=== PATIENT | male | born 1940 | race Caucasian/White ===

== ENCOUNTER 2017-03-19 09:09 | Outpatient (CLI) | payer MEDICARE, OTHER | END 2017-03-19 09:10 | disposition home or self-care (01) | DX: E53.8 Deficiency of other specified B group vitamins (principal); I10 Essential (primary) hypertension; C61 Malignant neoplasm of prostate; Z79.899 Other long term (current) drug therapy; I48.0 Paroxysmal atrial fibrillation; E78.5 Hyperlipidemia, unspecified ==

== ENCOUNTER 2017-09-15 14:14 | Outpatient (CLI) | payer MEDICARE, OTHER ==
[2017-09-15 19:18] LABS: BASOPHILS # (AUTO) 0.1 10^3/uL (0.0-0.1); EOSINOPHILS # (AUTO) 0.1 10^3/uL (0.0-0.7); EOSINOPHILS % (AUTO) 1.7 %; HCT - HEMATOCRIT 40.5 % (42.0-52.0); HGB - HEMOGLOBIN 13.1 g/dL (14.0-18.0); LYMPHOCYTES # (AUTO) 1.7 10^3/uL (1.5-3.5); LYMPHOCYTES % (AUTO) 29.2 %; MEAN CORPUSCULAR HEMOGLOBIN 31.5 pg (27.0-31.0); MEAN CORPUSCULAR HGB CONC 32.3 g/dL (32.0-36.0); MEAN CORPUSCULAR VOLUME 97.6 fL (80.0-94.0); MEAN PLATELET VOLUME 8.2 fL (7.4-11.4); MONOCYTES # (AUTO) 0.6 10^3/uL (0.0-1.0); MONOCYTES % (AUTO) 11.1 %; NEUTROPHILS # (AUTO) 3.3 10^3/uL (1.5-6.6); NUCLEATED RED BLOOD CELLS AUTO 0.1 /100WBC; RED BLOOD COUNT 4.15 10^6/uL (4.70-6.10); RED CELL DISTRIBUTION WIDTH 14.4 % (12.0-15.0); UNCORRECTED WHITE BLOOD COUNT 5.8 x10^3/uL; WHITE BLOOD COUNT 5.8 x10^3/uL (4.8-10.8)
[2017-09-15 19:32] LABS: ALBUMIN/GLOBULIN RATIO 1.1 (1.0-2.2); BILIRUBIN,TOTAL 0.8 mg/dL (0.2-1.0); CALCIUM 8.9 mg/dL (8.5-10.3); CREATININE 1.1 mg/dL (0.6-1.2); POTASSIUM 4.4 mmol/L (3.5-5.0); TOTAL PROTEIN 7.2 g/dL (6.7-8.2)
== END 2017-09-15 14:15 | disposition home or self-care (01) ==
LOC: LAB.WCP 14:14
PROVIDERS: ATTEND Family Medicine
DX: K91.850 Pouchitis (principal)
CPT/HCPCS: 36415; 80053; 85025

== ENCOUNTER 2017-09-23 07:48 | Outpatient (CLI) | payer MEDICARE, OTHER ==
[~2017-09-23 07:48] MED LIST: IOPAMIDOL-300 100 ML VIAL ONE; IOPAMIDOL-300 50 ML VIAL ONE
[2017-09-23] MEDS ORDERED: IOPAMIDOL-300 100 ML VIAL IVP ONE (09:15)
[2017-09-23] MEDS ORDERED: IOPAMIDOL-300 50 ML VIAL PO ONE (09:15)
--- NOTE | 2017-09-24 12:20 | CT Report ---
ABDOMEN AND PELVIS CT: 09/23/2017 COMPARISON STUDY: Abdomen and pelvis CT 05/27/2016. INDICATION: History of colon resection and inflammatory bowel disease. TECHNIQUE: Five-millimeter axial imaging of the abdomen and pelvis with coronal and sagittal reforma ts. A total of 100 mL Isovue-300, with oral contrast as well. In accordance with CT protocol optimization, one or more of the following dose reduction techniques w ere utilized for this exam: automated exposure control, adjustment of mA and/or KV based on patient size, or use of iterative reconstructive technique. FINDINGS: The liver, spleen, pancreas, and adrenal glands appear unremarkable. Right renal cortical cyst appears unchanged. The kidneys appear otherwise unremarkable. There is thickening of the distal small bowel at the coloenteric anastomosis. This is significantly decreased compared to the prior exam. No abdominal or pelvic adenopathy is seen. Prostate seeds are noted. There is no free fluid or free air. Left hip prosthesis is noted. Bones are otherwise remarkable only for degenerative changes. Soft ti ssues are grossly unremarkable apart from postoperative changes of the anterior abdomen. IMPRESSION: SIGNIFICANT DECREASE IN SMALL BOWEL THICKENING AT THE COLOENTERIC ANASTOMOSIS COMPARED T O THE PRIOR EXAM. JOB #: [id number] EXT JOB #:[id number]
== END 2017-09-23 07:49 | disposition home or self-care (01) ==
LOC: DI 07:48
PROVIDERS: ATTEND Family Medicine
DX: K91.850 Pouchitis (principal)
CPT/HCPCS: 74177; Q9967

== ENCOUNTER 2017-10-08 13:07 | Outpatient (CLI) | payer MEDICARE, OTHER | END 2017-10-08 13:08 | disposition home or self-care (01) | LOC: LAB.R 13:07 | PROVIDERS: ATTEND Internal Medicine Gastroenterology | DX: Z87.19 Personal history of other diseases of the digestive system (principal); K52.9 Noninfective gastroenteritis and colitis, unspecified | CPT/HCPCS: 87177; 87209 ==

== ENCOUNTER 2017-10-14 11:47 | Day surgery (SDC) | payer MEDICARE, OTHER ==
[2017-10-14] MEDS ORDERED: LACTATED RINGERS 1,000 ML IV ONE (12:20)
[2017-10-14] MEDS ORDERED: fentaNYL 100 MCG/2 ML VIAL IVP ONE (13:00)
[2017-10-14] MEDS ORDERED: MIDAZOLAM 2 MG/2 ML VIAL IVP ONE (13:00)
[2017-10-14 13:37] VITALS: BP 11/79
== END 2017-10-14 11:48 | disposition home or self-care (01) ==
LOC: SDS 11:47
PROVIDERS: ATTEND Internal Medicine
PROC: 0DBB8ZX Excision of Ileum, Via Natural or Artificial Opening Endoscopic, Diagnostic (ICD-10-PCS; principal; 2017-10-14 13:00)
DX: K51.40 Inflammatory polyps of colon without complications (principal); K63.3 Ulcer of intestine; Z90.49 Acquired absence of other specified parts of digestive tract; I48.2 Chronic atrial fibrillation; E78.5 Hyperlipidemia, unspecified; I10 Essential (primary) hypertension; Z79.01 Long term (current) use of anticoagulants; Z87.891 Personal history of nicotine dependence; Z85.46 Personal history of malignant neoplasm of prostate
CPT/HCPCS: 44377; 88305; J7120

== ENCOUNTER 2017-11-09 10:21 | Emergency (ER) | payer MEDICARE, OTHER ==
--- NOTE | 2017-11-09 11:50 | CT Preliminary Report ---
Exam: CT HEAD W/O IMPRESSION: 1. No evidence for intracranial hemorrhage or depressed calvarial fracture. [facility] SITE ID: [id number]
--- NOTE | 2017-11-09 11:53 | CT Report ---
EXAM: CT HEAD EXAM DATE: 11/09/2017 11:42 AM. CLINICAL HISTORY: Injury. Fell on ice this morning. Hit occiput. On blood thinners. COMPARISON: None. TECHNIQUE: Multiaxial CT images were obtained from the foramen magnum to the vertex. Reformats: Coron al. IV contrast: None. In accordance with CT protocol optimization, one or more of the following dose reduction techniques w ere utilized for this exam: automated exposure control, adjustment of mA and/or KV based on patient s ize, or use of iterative reconstructive technique. FINDINGS: Parenchyma: No intraparenchymal hemorrhage. No evidence of mass, midline shift, or CT findings of inf arction. Smart-white differentiation is distinct. Old right basal ganglia lacunar infarct versus promi nent Virchow-William space. Incidental right basal ganglia physiologic calcifications. Extraaxial Spaces: Normal for age. No subdural or epidural collections identified. Ventricles: Normal in size and position. Sinuses and Orbits: Imaged paranasal sinuses, orbits, and mastoids show no significant abnormality. Bones: No evidence of fracture or calvarial defect. Other: None. IMPRESSION: 1. No evidence for intracranial hemorrhage or depressed calvarial fracture. [facility] Referring Provider Line: [phone] SITE ID: [id number]
--- NOTE | 2017-11-09 12:16 | XRAY Preliminary Report ---
Exam: XR SHOULDER 3 VIEW RT IMPRESSION: 1. Scapular Y-view raises concern for scapular fracture along inferior angle. Consider CT to further characterize. [facility] SITE ID: [id number]
--- NOTE | 2017-11-09 12:19 | XRAY Report ---
EXAM: RIGHT SHOULDER RADIOGRAPHY EXAM DATE: 11/09/2017 11:52 AM. CLINICAL HISTORY: Fall with pain . COMPARISON: None. TECHNIQUE: 3 views. FINDINGS: Bones: Scapular Y-view raises concern for scapular fracture along inferior angle. Joints: The glenohumeral and acromioclavicular joints are normally aligned. Glenohumeral joint space narrowing from degenerative changes. Soft tissues: The visualized hemithorax is unremarkable. No soft tissue swelling. IMPRESSION: 1. Scapular Y-view raises concern for scapular fracture along inferior angle. Consider CT to further characterize. [facility] Referring Provider Line: [phone] SITE ID: [id number]
[2017-11-09 13:11] VITALS: BP 155/96
--- NOTE | 2017-11-09 14:01 | CT Preliminary Report ---
Exam: CT CHEST W/O IMPRESSION: 1. Fracture with small displacement in the medial mid-inferior right scapular body. 2. Negative for pneumothorax, pleural effusion or pulmonary contusion. 3. Coronary artery disease and new borderline cardiomegaly without overt pulmonary edema. [facility] SITE ID: [id number]
--- NOTE | 2017-11-09 14:04 | CT Report ---
EXAM: CT CHEST EXAM DATE: 11/09/2017 01:45 PM. CLINICAL HISTORY: Pain post fall, clinical concern for scapular fracture. COMPARISONS: 03/22/2013. TECHNIQUE: Routine helical CT imaging was performed through the chest. IV contrast: None. Reconstruct ions: Coronal and sagittal. In accordance with CT protocol optimization, one or more of the following dose reduction techniques w ere utilized for this exam: automated exposure control, adjustment of mA and/or KV based on patient s ize, or use of iterative reconstructive technique. FINDINGS: Lungs/Pleura: Interval resolution of the right large pleural effusion and the right basilar pulmonary opacity is noted. No new nodules, bronchial thickening, consolidation, or edema. Pulmonary vasculatu re is normal. No pericardial or left pleural effusion. No pneumothorax. Mediastinum: No new adenopathy or masses. There is new borderline cardiomegaly. Coronary artery calci fications are again seen. No thoracic aortic aneurysm. Bones: There is fracture with small displacement in the medial mid-lower right scapular body. No rib fracture, clavicular fracture, sternal or thoracic spine fracture seen. Visualized Abdomen: Unremarkable. IMPRESSION: 1. Fracture with small displacement in the medial mid-inferior right scapular body. 2. Negative for pneumothorax, pleural effusion or pulmonary contusion. 3. Coronary artery disease and new borderline cardiomegaly without overt pulmonary edema. [facility] Referring Provider Line: [phone] SITE ID: [id number]
[2017-11-09] MEDS ORDERED: HYDROcod/ACETAM 5/325 MG TABLET PO STA (15:09)
--- NOTE | 2017-11-09 15:09 | ED Physician Documentation ---
History of Present Illness - Stated complaint Stated Complaint: RT SHOULDER PX - Chief complaint Chief Complaint: Trauma Ext - History obtained from History obtained from: Patient (pt here for evaluation of a fall. he states that he fell down some stairs after tripping. states that he did hit his head , no LOC does have right shoulder pain. No problems breathing, no other complatins from the fall.) - History of Present Illness Timing: Prior to arrival Review of Systems Constitutional: denies: Fever, Chills Cardiac: denies: Chest pain / pressure, Palpitations, Pedal edema Respiratory: denies: Dyspnea, Cough GI: denies: Abdominal Pain, Nausea, Vomiting : denies: Dysuria, Frequency Skin: reports: Reviewed and negative. denies: Rash, Lesions Musculoskeletal: reports: Extremity pain (right [place]), Joint pain (right shoulder). denies: Neck pain, Back pain, Extremity swelling, Joint swelling Neurologic: denies: Generalized weakness, Numbness, Syncope, Seizure, Confused, Altered mental status, Headache, Head injury, LOC PD PAST MEDICAL HISTORY - Past Medical History Past Medical History: Yes Cardiovascular: Hypertension, Atrial fibrillation Respiratory: None Endocrine/Autoimmune: None GI: None : None, Other HEENT: None Psych: None Musculoskeletal: None Derm: None - Past Surgical History Past Surgical History: Yes General: Other HEENT: Tonsil/Adenoidectomy - Present Medications Home Medications: Ambulatory Orders Medication Instructions Recorded Confirmed Metoprolol Succinate [Toprol Xl] 100 mg PO BID 03/29/14 11/09/17 Rivaroxaban [Xarelto] 20 mg PO DAILY 03/29/14 11/09/17 Simvastatin [Zocor] 20 mg PO QPM 03/29/14 11/09/17 Apixaban [Eliquis] 11/09/17 HYDROcod/ACETAM 5/325 [[place] 5/325] 1 - 2 ea PO Q6H PRN #15 tablet 11/09/17 - Allergies Allergies/Adverse Reactions: Allergies Allergy/AdvReac Type Severity Reaction Status Date / Time Sulfa (Sulfonamide Allergy Mild Rash Verified 03/29/14 12:37 Antibiotics) - Social History Does the pt smoke?: Yes Smoking Status: Former smoker Does the pt have substance abuse?: No - POLST Patient has POLST: Yes PD ED PE NORMAL - Vitals Vital signs reviewed: Yes - General General: Alert and oriented X 3, No acute distress, Well developed/nourished - HEENT HEENT: Atraumatic, PERRL, Ears normal, Moist mucous membranes - Cardiac Cardiac: RRR, No murmur, Strong equal pulses (radial ) - Respiratory Respiratory: No respiratory distress, Clear bilaterally - Abdomen Abdomen: Normal bowel sounds - Back Back: No CVA TTP, No spinal TTP - Derm Derm: Normal color, No rash - Extremities Extremities: No deformity, No edema. No: No tenderness to palpate (TTP over the right shoulder, pt able to touch is left shoulder with right hand but with pain. No right elbow or right wrist pain. No hip pain no LE swelling. ) - Neuro Neuro: Alert and oriented X 3, No motor deficit, No sensory deficit (sensation intact over the right lateral deltoid and right upper extremity. ) Eye Opening: Spontaneous Motor: Obeys Commands Verbal: Oriented GCS Score: 15 - Psych Psych: Normal mood, Normal affect Results - Vitals Vitals: Vital Signs - 24 hr 11/09/17 11/09/17 11/09/17 10:29 11:19 13:10 Temperature 36.3 C L 36.9 C Heart Rate 75 81 76 Respiratory 18 16 18 Rate Blood Pressure 153/85 H 135/84 H 155/96 H O2 Saturation 100 99 98 Oxygen O2 Source [Without Activity] Room air O2 Source Room air - Rads (name of study) Head CT Radiology: Final report received right shoulder X-ray Radiology: Final report received Ct chest Radiology: Final report received PD MEDICAL DECISION MAKING - ED course Complexity details: d/w patient ED course: pt with right scapula fracture. discussed with ortho direct care professional who recommended sling and follow up in office in a week. Discussed this with the pt. he has no other PE findings from the fall. he is anticoagulated but has no findings on the head CT and has no neuro findings. We discussed return precautions. he expressed understanding. Departure - Departure Disposition: 01 Home, Self Care Clinical Impression: Fall, Scapular fracture Condition: Good Instructions: ED Immobilizer Shoulder, Falls Risks Prevent Follow-Up: Pablo Jackson MD [Primary Care Provider] - Prescriptions: HYDROcod/ACETAM 5/325 [[place] 5/325] 1 - 2 ea PO Q6H PRN #15 tablet PRN Reason: Pain Comments: use the sling like we discussed. call your primary care provider for a follow up in the next week. Return to the ER for any new or worsening symptoms.
[2017-11-09] MEDS ORDERED: HYDROcod/ACETAM 5/325 MG TABLET ONE (15:27)
== END 2017-11-09 15:23 | disposition home or self-care (01) ==
LOC: ED 10:21
DX: S42.111A Displaced fracture of body of scapula, right shoulder, initial encounter for closed fracture (principal); W10.9XXA Fall (on) (from) unspecified stairs and steps, initial encounter; I10 Essential (primary) hypertension; I48.91 Unspecified atrial fibrillation; Z79.01 Long term (current) use of anticoagulants; Z87.891 Personal history of nicotine dependence
CPT/HCPCS: 70450; 71250; 73030; 99283; A9270

== ENCOUNTER 2017-11-26 14:26 | Outpatient (CLI) | payer MEDICARE, OTHER ==
[2017-11-26 19:17] LABS: BASOPHILS # (AUTO) 0.1 10^3/uL (0.0-0.1); BASOPHILS % (AUTO) 0.9 %; EOSINOPHILS # (AUTO) 0.1 10^3/uL (0.0-0.7); EOSINOPHILS % (AUTO) 1.6 %; HCT - HEMATOCRIT 40.3 % (42.0-52.0); HGB - HEMOGLOBIN 13.1 g/dL (14.0-18.0); LYMPHOCYTES # (AUTO) 1.5 10^3/uL (1.5-3.5); LYMPHOCYTES % (AUTO) 26.3 %; MEAN CORPUSCULAR HEMOGLOBIN 31.7 pg (27.0-31.0); MEAN CORPUSCULAR HGB CONC 32.5 g/dL (32.0-36.0); MEAN CORPUSCULAR VOLUME 97.3 fL (80.0-94.0); MEAN PLATELET VOLUME 7.8 fL (7.4-11.4); MONOCYTES # (AUTO) 0.6 10^3/uL (0.0-1.0); MONOCYTES % (AUTO) 9.6 %; NEUTROPHILS # (AUTO) 3.6 10^3/uL (1.5-6.6); NEUTROPHILS % (AUTO) 61.6 %; RED BLOOD COUNT 4.15 10^6/uL (4.70-6.10); RED CELL DISTRIBUTION WIDTH 13.4 % (12.0-15.0); UNCORRECTED WHITE BLOOD COUNT 5.8 x10^3/uL; WHITE BLOOD COUNT 5.8 x10^3/uL (4.8-10.8)
[2017-11-26 19:28] LABS: ALBUMIN/GLOBULIN RATIO 1.2 (1.0-2.2); BILIRUBIN,TOTAL 0.6 mg/dL (0.2-1.0); BUN - BLOOD UREA NITROGEN 20 mg/dL (6-20); CALCIUM 9.3 mg/dL (8.5-10.3); CARBON DIOXIDE - CO2 29 mmol/L (21-32); CHLORIDE 102 mmol/L (101-111); CREATININE 1.1 mg/dL (0.6-1.2); GFR - MDRD 65 (>89); GLUCOSE 95 mg/dL (70-100); POTASSIUM 4.4 mmol/L (3.5-5.0); SODIUM 140 mmol/L (135-145); TOTAL PROTEIN 7.4 g/dL (6.7-8.2)
[2017-11-26 20:29] LABS: FOLATE > 49.60 ng/mL (5.90 - >24.8)
== END 2017-11-26 14:27 | disposition home or self-care (01) ==
LOC: LAB.WCP 14:26
PROVIDERS: ATTEND Family Medicine
DX: E53.8 Deficiency of other specified B group vitamins (principal); R41.3 Other amnesia
CPT/HCPCS: 36415; 80053; 82607; 82746; 83921; 84443; 85025

== ENCOUNTER 2017-12-08 07:37 | Outpatient (CLI) | payer MEDICARE, OTHER ==
[2017-12-08] MEDS ORDERED: GADOBUTROL 7.5 MMOL/7.5 ML VIAL ONE (08:05)
[2017-12-08] MEDS ORDERED: GADOBUTROL 7.5 MMOL/7.5 ML VIAL IVP ONE (08:36)
--- NOTE | 2017-12-08 09:22 | MRI Report ---
EXAM: MRI BRAIN WITHOUT AND WITH CONTRAST EXAM DATE: 12/08/2017 08:38 AM. CLINICAL HISTORY: MEMORY LOSS. COMPARISON: Prior CT study head 11/09/2017. TECHNIQUE: Multiplanar, multisequence T1-weighted and fluid-sensitive MR sequences of the brain were performed. Sequences optimized for routine evaluation. Other: None. IV Contrast: 7.5 cc Gadavist. Findings: Relevant images are indicated (image number, series number). There is no acute or subacute ischemic change in the brain. Gradient echo imaging negative. There is no hemorrhage, mass or midline shift. Basal cisterns, bilateral IACs, bilateral Meckel's caves are cl ear. Orbital contents negative. Paranasal sinuses, mastoid air cells demonstrate no significant fluid signal. Normal expected vascular flow voids of the major arteries and veins. Mild bilateral pontine white mat ter disease mild scattered periventricular, subcortical white matter disease. There is minimal genera lized cortical atrophy. Prominent right nasal shadi bullosa. Postcontrast imaging demonstrates no abnormal enhancement of the brain, meninges. Pituitary, infundib ulum, mid brain, craniocervical junction, limited evaluation upper cervical cord negative. Impressions: 1. No acute or subacute ischemic change. 2. Mild scattered white matter disease most likely related to chronic small vessel ischemic disease, correlate with patient risk factors including any history of diabetes, hypertension, hypercholesterol emia. 3. Minimal generalized cortical atrophy, no significant atrophy of the bilateral temporal lobes, cameron ocampus. Postcontrast imaging negative. Remaining brain, orbits are unremarkable. [facility] Referring Provider Line: [phone] SITE ID: [id number]
== END 2017-12-08 07:38 | disposition home or self-care (01) ==
LOC: DI 07:37
PROVIDERS: ATTEND Family Medicine
DX: R41.3 Other amnesia (principal); R90.82 White matter disease, unspecified; G31.9 Degenerative disease of nervous system, unspecified
CPT/HCPCS: 70553; A9585

== ENCOUNTER 2017-12-29 10:07 | Emergency (ER) | payer MEDICARE, OTHER ==
[2017-12-29 10:28] VITALS: BP 151/89
--- NOTE | 2017-12-29 12:27 | ED Physician Documentation ---
PD HPI URI - Stated complaint Stated Complaint: FLU LIKE SYMPTOMS - Chief complaint Chief Complaint: Fever - History obtained from History obtained from: Patient - History of Present Illness Timing - onset: How many days ago (2) Timing duration: Days (2) Timing details: Abrupt onset, Still present Associated symptoms: Fever, Chills, Sweats, Nasal congestion, Dry cough, Other ( body aches). No: NVD Contributing factors: Sick contact (coworkers with the flu). No: Immunocompromised Similar symptoms before: Has not had sx before Recently seen: Not recently seen Review of Systems Constitutional: reports: Fever, Chills, Myalgias, Fatigue Nose: reports: Congestion. denies: Rhinorrhea / runny nose Throat: reports: Sore throat Cardiac: denies: Chest pain / pressure Respiratory: reports: Cough. denies: Dyspnea, Wheezing GI: reports: Nausea. denies: Vomiting, Diarrhea Skin: denies: Rash PD PAST MEDICAL HISTORY - Past Medical History Cardiovascular: Hypertension, Atrial fibrillation Respiratory: None Endocrine/Autoimmune: None GI: None : None, Other HEENT: None Psych: None Musculoskeletal: None Derm: None - Past Surgical History Past Surgical History: Yes General: Other HEENT: Tonsil/Adenoidectomy - Present Medications Home Medications: Ambulatory Orders Medication Instructions Recorded Confirmed Metoprolol Succinate [Toprol Xl] 100 mg PO BID 03/29/14 11/09/17 Simvastatin [Zocor] 20 mg PO QPM 03/29/14 11/09/17 Apixaban [Eliquis] 11/09/17 Albuterol Sulf [Ventolin Hfa 1 - 2 puffs INH Q4HR PRN #1 inhaler 12/29/17 Inhaler] Dexamethasone [Decadron] 4 mg PO DAILY #5 tablet 12/29/17 Oseltamivir [Tamiflu] 75 mg PO BID #10 capsule 12/29/17 - Allergies Allergies/Adverse Reactions: Allergies Allergy/AdvReac Type Severity Reaction Status Date / Time Sulfa (Sulfonamide Allergy Mild Rash Verified 12/29/17 10:28 Antibiotics) - Social History Does the pt smoke?: Yes Smoking Status: Current every day smoker Does the pt have substance abuse?: No - POLST Patient has POLST: Yes PD ED PE NORMAL - Vitals Vital signs reviewed: Yes - General General: Alert and oriented X 3, No acute distress, Well developed/nourished - HEENT HEENT: Ears normal, Moist mucous membranes, Pharynx benign - Neck Neck: Supple, no meningeal sign, No adenopathy - Cardiac Cardiac: RRR, No murmur - Respiratory Respiratory: Clear bilaterally - Abdomen Abdomen: Soft, Non tender - Derm Derm: Normal color, Warm and dry, No rash - Neuro Neuro: Alert and oriented X 3, No motor deficit, Normal speech - Psych Psych: Normal mood, Normal affect Results - Vitals Vitals: Oxygen O2 Source [Without Activity] Room air O2 Source Room air PD MEDICAL DECISION MAKING - ED course Complexity details: considered differential (sounds like the flu. Talked about Tamiflu and he opted not to take it given the margin benefit. Will treat symptoms. ), d/w patient Departure - Departure Disposition: 01 Home, Self Care Clinical Impression: Flu-like symptoms Condition: Stable Record reviewed to determine appropriate education?: Yes Instructions: ED Flu Follow-Up: Pablo Jackson MD [Primary Care Provider] - Prescriptions: Albuterol Sulf [Ventolin Hfa Inhaler] 1 - 2 puffs INH Q4HR PRN #1 inhaler PRN Reason: Shortness Of Air/Wheezing Dexamethasone [Decadron] 4 mg PO DAILY #5 tablet Oseltamivir [Tamiflu] 75 mg PO BID #10 capsule Comments: This sounds like the flu we can just call at that. The nasal testing for it is somewhat inaccurate and clinical diagnosis is about as good. Use Tamiflu twice daily for 5 days to try to blunt the flu symptoms. You have a little bit of wheezing going on so use an albuterol inhaler 2 puffs 4 times a day and as needed. Use Tylenol every 6 hours if needed for fevers and likely just take it regularly the next few days. Decadron is an anti-inflammatory that tries to decrease the inflammation response and therefore less symptoms. Recheck if not improving over the next 5 or 6 days. Return if significantly worsening. Discharge Date/Time: 12/29/17 13:08
[2017-12-29] MEDS ORDERED: DEXAMETHASONE 10 MG/ML VIAL PO STA (12:48)
== END 2017-12-29 13:08 | disposition home or self-care (01) ==
LOC: ED 10:07
DX: R50.9 Fever, unspecified (principal); R09.81 Nasal congestion; R05 Cough; M79.1 Myalgia; R61 Generalized hyperhidrosis; I10 Essential (primary) hypertension; F17.200 Nicotine dependence, unspecified, uncomplicated
CPT/HCPCS: 99283

== ENCOUNTER 2018-02-22 10:01 | Emergency (ER) | payer MEDICARE, OTHER ==
[2018-02-22 10:30] LABS: BASOPHILS % (AUTO) 0.7 %; EOSINOPHILS # (AUTO) 0.1 10^3/uL (0.0-0.7); EOSINOPHILS % (AUTO) 2.2 %; HGB - HEMOGLOBIN 13.4 g/dL (14.0-18.0); LYMPHOCYTES # (AUTO) 1.1 10^3/uL (1.5-3.5); LYMPHOCYTES % (AUTO) 16.9 %; MEAN CORPUSCULAR HEMOGLOBIN 31.7 pg (27.0-31.0); MEAN CORPUSCULAR HGB CONC 33.5 g/dL (32.0-36.0); MEAN CORPUSCULAR VOLUME 94.8 fL (80.0-94.0); MEAN PLATELET VOLUME 7.1 fL (7.4-11.4); MONOCYTES # (AUTO) 0.9 10^3/uL (0.0-1.0); NEUTROPHILS # (AUTO) 4.3 10^3/uL (1.5-6.6); NEUTROPHILS % (AUTO) 66.2 %; PLT - PLATELET COUNT 229 10^3/uL (130-450); RED BLOOD COUNT 4.21 10^6/uL (4.70-6.10); RED CELL DISTRIBUTION WIDTH 13.8 % (12.0-15.0); WHITE BLOOD COUNT 6.5 x10^3/uL (4.8-10.8)
[2018-02-22 10:40] LABS: ALBUMIN 3.8 g/dL (3.2-5.5); ALBUMIN/GLOBULIN RATIO 1.1 (1.0-2.2); BILIRUBIN,TOTAL 0.9 mg/dL (0.2-1.0); CALCIUM 8.9 mg/dL (8.5-10.3); CREATININE 0.9 mg/dL (0.6-1.2); TOTAL PROTEIN 7.4 g/dL (6.7-8.2)
--- NOTE | 2018-02-22 11:49 | XRAY Report ---
EXAM: CHEST RADIOGRAPHY EXAM DATE: 02/22/2018 10:47 AM. CLINICAL HISTORY: Chest pain with shortness of air. Burning. Radiates into left arm. COMPARISON: 03/29/2013. 03/24/2013. TECHNIQUE: 2 views. FINDINGS: Lungs/Pleura: Scarring in the right lung base. No consolidation. No vascular congestion. No pneumotho rax . Lung volumes are upper normal. Mediastinum: Heart size is upper normal. Aortic atherosclerosis. Other: Degenerative changes of the thoracic spine. IMPRESSION: 1. No acute disease in the chest. 2. Right basilar parenchymal scarring. [facility] Referring Provider Line: [phone] SITE ID: [id number]
[2018-02-22 12:23] VITALS: BP 139/92
--- NOTE | 2018-02-22 12:23 | ED Physician Documentation ---
History of Present Illness - Stated complaint Stated Complaint: CHEST PAIN/HOT FEELING/ARM PX - Chief complaint Chief Complaint: Cardiac - History obtained from History obtained from: Patient - History of Present Illness Timing: How many weeks ago (2) Pain level max: 2 Pain level now: 2 Improved by: nothing Worsened by: nothing - Additonal information Additional information: Patient is a 77-year-old male who presents to the emergency department with left -sided chest pain for the past 2 weeks, described as a dull ache. Has been there constantly. Does not change with movement, palpation, exercise, breathing. Occasionally has a 15 to 60 second episode of burning in that area. No rash. No cardiac history. Attempted to contact his PCP today who was unavailable. States currently feeling well. No history of similar. Also states has noticed a dull ache in the posterior aspect of the bilateral upper arms. This does not change with use either. No swelling. Review of Systems Ten Systems: 10 systems reviewed and negative Constitutional: denies: Fever, Chills Eyes: denies: Decreased vision Ears: denies: Ear pain Nose: denies: Rhinorrhea / runny nose, Congestion Throat: denies: Sore throat Respiratory: denies: Cough, Hemoptysis, Wheezing Skin: denies: Rash Musculoskeletal: denies: Neck pain, Back pain Neurologic: denies: Headache PD PAST MEDICAL HISTORY - Past Medical History Past Medical History: Yes Cardiovascular: Hypertension, High cholesterol, Atrial fibrillation Respiratory: None Endocrine/Autoimmune: None GI: None : None, Other HEENT: None Psych: None Musculoskeletal: None Derm: None - Past Surgical History Past Surgical History: Yes General: Other HEENT: Tonsil/Adenoidectomy - Present Medications Home Medications: Ambulatory Orders Medication Instructions Recorded Confirmed Metoprolol Succinate [Toprol Xl] 100 mg PO BID 03/29/14 11/09/17 Simvastatin [Zocor] 20 mg PO QPM 03/29/14 11/09/17 Apixaban [Eliquis] 11/09/17 - Allergies Allergies/Adverse Reactions: Allergies Allergy/AdvReac Type Severity Reaction Status Date / Time Sulfa (Sulfonamide Allergy Mild Rash Verified 02/22/18 10:10 Antibiotics) - Social History Does the pt smoke?: Yes Smoking Status: Current some day smoker Does the pt drink ETOH?: No Does the pt have substance abuse?: No - Immunizations Immunizations are current?: Yes - POLST Patient has POLST: Yes PD ED PE NORMAL - Vitals Vital signs reviewed: Yes - General General: Alert and oriented X 3, No acute distress, Well developed/nourished - HEENT HEENT: PERRL, Moist mucous membranes - Neck Neck: Supple, no meningeal sign, No bony TTP - Cardiac Cardiac: Strong equal pulses, Other (Irregular) - Respiratory Respiratory: No respiratory distress, Clear bilaterally - Abdomen Abdomen: Soft, Non tender, Non distended - Derm Derm: Warm and dry, No rash - Extremities Extremities: No edema, No calf tenderness / cord - Neuro Neuro: Alert and oriented X 3, 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, No motor deficit, No sensory deficit, Normal speech - Psych Psych: Normal mood, Normal affect Results - Vitals Vitals: Vital Signs - 24 hr 02/22/18 02/22/18 02/22/18 10:07 11:30 12:23 Temperature 36.7 C Heart Rate 89 81 80 Respiratory 18 18 17 Rate Blood Pressure 154/109 H 128/81 H 139/92 H O2 Saturation 99 97 98 Oxygen O2 Source [] Room air O2 Source Room air - EKG (time done) 1004 Rate: Rate (enter#) (114) Rhythm: Atrial fibrillation, Other (PVCs) [place]: LAD, Anterior hemiblock (LAFB) Ischemia: Non specific changes - Labs Labs: Laboratory Tests 02/22/18 02/22/18 02/22/18 10:23 10:23 10:23 WBC 6.5 RBC 4.21 L Hgb 13.4 L Hct 39.9 L MCV 94.8 H MCH 31.7 H MCHC 33.5 RDW 13.8 Plt Count 229 MPV 7.1 L Neut # 4.3 Lymph # 1.1 L [place] # 0.9 Eos # 0.1 Baso # 0.0 Absolute Nucleated RBC 0.00 Nucleated RBC % 0.0 Sodium 137 Potassium 4.1 Chloride 102 Carbon Dioxide 26 Anion Gap 9.0 BUN 15 Creatinine 0.9 Estimated GFR (MDRD) 82 L Glucose 86 Calcium 8.9 Total Bilirubin 0.9 AST 25 ALT 17 Alkaline Phosphatase 63 Troponin I < 0.04 Total Protein 7.4 Albumin 3.8 Globulin 3.6 Albumin/Globulin Ratio 1.1 Lipase 18 L - Rads (name of study) Chest x-ray Radiology: Prelim report reviewed, EMP read contemporaneously, See rad report ( No acute disease) PD MEDICAL DECISION MAKING - ED course Complexity details: reviewed results, re-evaluated patient, considered differential (No ST elevation CT, no aortic dissection, no PE, no tension pneumothorax, no aortic aneurysm, No DVT.), d/w patient ED course: Patient is a 77-year-old male who presents to the emergency department with several weeks of chest pain and bilateral arm pain. Negative troponin. Normal x-ray. Does not sound consistent with aortic dissection or aneurysm. No evidence of acute coronary syndrome at this time. We will have him follow-up closely with his doctor for a cardiac stress test. He will return if he worsens. Patient counseled regarding signs and symptoms for which I believe and urgent re-evaluation would be necessary. Patient with good understanding of and agreement to plan and is comfortable going home at this time This document was made in part using voice recognition software. While efforts are made to proofread this document, sound alike and grammatical errors may occur. Departure - Departure Disposition: 01 Home, Self Care Clinical Impression: Chest pain Qualifiers: Chest pain type: unspecified Qualified Code(s): R07.9 - Chest pain, unspecified Condition: Good Instructions: ED Chest Pain Atypical Unkn Cause Follow-Up: Pablo Jackson MD [Primary Care Provider] - Within 1 week Comments: Your tests appear normal today. Return if you worsen. You do need to follow- up closely with your doctor for cardiac stress test in the next week. Discharge Date/Time: 02/22/18 12:35
== END 2018-02-22 12:35 | disposition home or self-care (01) ==
LOC: ED 10:01
DX: R07.9 Chest pain, unspecified (principal); I48.91 Unspecified atrial fibrillation; I44.4 Left anterior fascicular block; I10 Essential (primary) hypertension; E78.00 Pure hypercholesterolemia, unspecified; F17.200 Nicotine dependence, unspecified, uncomplicated
CPT/HCPCS: 36415; 71046; 80053; 83690; 84484; 85025; 93005; 99283

== ENCOUNTER 2020-09-14 08:00 | Outpatient (CLI) | payer MEDICARE, OTHER ==
[2020-09-14 18:33] LABS: BASOPHILS # (AUTO) 0.1 10^3/uL (0.0-0.1); BASOPHILS % (AUTO) 0.8 %; EOSINOPHILS # (AUTO) 0.1 10^3/uL (0.0-0.7); EOSINOPHILS % (AUTO) 1.1 %; HGB - HEMOGLOBIN 13.1 g/dL (14.0-18.0); LYMPHOCYTES % (AUTO) 15.7 %; MEAN CORPUSCULAR HEMOGLOBIN 31.6 pg (27.0-31.0); MEAN CORPUSCULAR HGB CONC 30.7 g/dL (32.0-36.0); MEAN CORPUSCULAR VOLUME 103.1 fL (80.0-94.0); MEAN PLATELET VOLUME 9.8 fL (7.4-11.4); MONOCYTES # (AUTO) 0.6 10^3/uL (0.0-1.0); MONOCYTES % (AUTO) 9.4 %; NEUTROPHILS # (AUTO) 4.7 10^3/uL (1.5-6.6); NEUTROPHILS % (AUTO) 72.7 %; PLT - PLATELET COUNT 244 10^3/uL (130-450); RED BLOOD COUNT 4.14 10^6/uL (4.70-6.10); RED CELL DISTRIBUTION WIDTH 13.9 % (12.0-15.0); WHITE BLOOD COUNT 6.5 x10^3/uL (4.8-10.8)
[2020-09-14 19:40] LABS: ALBUMIN 3.8 g/dL (3.2-5.5); ALBUMIN/GLOBULIN RATIO 1.1 (1.0-2.2); ALKALINE PHOSPHATASE 68 IU/L (42-121); ALT ALANINE AMINOTRANSFERASE 17 IU/L (10-60); AST ASPARTATE AMINOTRANSFERASE 22 IU/L (10-42); BILIRUBIN,TOTAL 1.4 mg/dL (0.2-1.0); BUN - BLOOD UREA NITROGEN 20 mg/dL (6-20); CALCIUM 9.3 mg/dL (8.5-10.3); CARBON DIOXIDE - CO2 27 mmol/L (21-32); CHLORIDE 104 mmol/L (101-111); CHOL/HDL RATIO 3.3 (<5.0); CHOLESTEROL 167 mg/dL; CREATININE 1.1 mg/dL (0.6-1.2); GLUCOSE 87 mg/dL (70-100); HDL CHOLESTEROL 51 mg/dL; LDL CHOLESTEROL,CALCULATED 97 mg/dL; LDL/HDL RATIO 1.9 (<3.6); SODIUM 139 mmol/L (135-145); TOTAL PROTEIN 7.3 g/dL (6.7-8.2); VLDL CHOLESTEROL 19 mg/dL
== END 2020-09-14 08:01 | disposition home or self-care (01) ==
LOC: LAB.WCP 08:00
PROVIDERS: ATTEND Family Medicine
DX: I48.91 Unspecified atrial fibrillation (principal); I10 Essential (primary) hypertension; E78.5 Hyperlipidemia, unspecified; R06.09 Other forms of dyspnea; C61 Malignant neoplasm of prostate; R94.31 Abnormal electrocardiogram [ECG] [EKG]
CPT/HCPCS: 36415; 80053; 80061; 83721; 83880; 84153; 84443; 84484; 85025

== ENCOUNTER 2020-10-09 09:11 | Outpatient (CLI) | payer MEDICARE, OTHER | END 2020-10-09 09:12 | disposition home or self-care (01) | LOC: DI 09:11 | PROVIDERS: ATTEND Family Medicine | DX: I48.91 Unspecified atrial fibrillation (principal); I51.7 Cardiomegaly | CPT/HCPCS: 93306 ==

== ENCOUNTER 2020-12-11 11:58 | Outpatient (CLI) | payer MEDICARE, OTHER ==
[2020-12-11 12:22] LABS: CALCIUM 9.7 mg/dL (8.5-10.3); CREATININE 1.2 mg/dL (0.6-1.2)
== END 2020-12-11 11:59 | disposition home or self-care (01) ==
LOC: LAB 11:58
DX: I50.23 Acute on chronic systolic (congestive) heart failure (principal)
CPT/HCPCS: 36415; 80048

== ENCOUNTER 2022-02-04 17:26 | Emergency (ER) | payer MEDICARE, OTHER ==
--- NOTE | 2022-02-04 18:25 | ED Physician Documentation ---
History of Present Illness - Stated complaint Stated Complaint: GLF - Chief complaint Chief Complaint: Trauma Ch/Bk - History obtained from History obtained from: Patient, Family - History of Present Illness Timing: Today Pain level max: 0 Pain level now: 0 - Additonal information Additional information: Patient is an 81-year-old male who was standing up from the table today when he tripped, fell backwards against a wall and slid down the wall to the floor. No loss of consciousness. No chest pain. No shortness of breath. Patient is accompanied by his . He is on Eliquis. They went to the walk-in clinic today for evaluation. They sent him here for further care. The patient is fully asymptomatic. No injuries. Review of Systems Constitutional: denies: Fever, Chills Respiratory: denies: Cough GI: denies: Abdominal Pain, Nausea, Vomiting, Diarrhea Skin: denies: Rash Musculoskeletal: denies: Neck pain, Back pain Neurologic: reports: Head injury (Unclear if he may have struck his head against the wall or not.). denies: Focal weakness, Numbness, LOC PD PAST MEDICAL HISTORY - Past Medical History Past Medical History: Yes Cardiovascular: Hypertension, High cholesterol, Atrial fibrillation Respiratory: None Neuro: None Endocrine/Autoimmune: None GI: Ulcerative colitis : Other HEENT: None Psych: None Musculoskeletal: None Derm: None - Past Surgical History Past Surgical History: Yes General: Other HEENT: Tonsil/Adenoidectomy - Present Medications Home Medications: Ambulatory Orders Medication Instructions Recorded Confirmed Metoprolol Succinate [Toprol Xl] 100 mg PO BID 03/29/14 02/04/22 Simvastatin [Zocor] 20 mg PO QPM 03/29/14 02/04/22 Apixaban [Eliquis] 5 mg ORAL DAILY 11/09/17 02/04/22 - Allergies Allergies/Adverse Reactions: Allergies Allergy/AdvReac Type Severity Reaction Status Date / Time Sulfa (Sulfonamide Allergy Mild Rash Verified 02/04/22 17:28 Antibiotics) - Social History Does the pt smoke?: Yes Smoking Status: Former smoker Does the pt drink ETOH?: Yes Does the pt have substance abuse?: No - Immunizations Immunizations are current?: Yes - POLST Patient has POLST: Yes PD ED PE NORMAL - Vitals Vital signs reviewed: Yes - General General: Alert and oriented X 3, No acute distress, Well developed/nourished - HEENT HEENT: Atraumatic, PERRL, Ears normal, Moist mucous membranes, Pharynx benign - Neck Neck: Supple, no meningeal sign, No bony TTP - Cardiac Cardiac: RRR, Strong equal pulses - Respiratory Respiratory: No respiratory distress, Clear bilaterally - Abdomen Abdomen: Soft, Non tender, Non distended - Derm Derm: Warm and dry - Extremities Extremities: No deformity, Normal ROM s pain - Neuro Neuro: Alert and oriented X 3, 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, No motor deficit, No sensory deficit, Normal speech Eye Opening: Spontaneous Motor: Obeys Commands Verbal: Oriented GCS Score: 15 - Psych Psych: Normal mood, Normal affect Results - Vitals Vitals: Vital Signs - 24 hr 02/04/22 02/04/22 02/04/22 17:31 17:57 19:10 Temperature 36.8 C Heart Rate 81 90 82 Respiratory 18 19 20 Rate Blood Pressure 126/76 155/89 H O2 Saturation 100 99 100 02/04/22 19:51 Temperature 37 C Heart Rate 86 Respiratory 14 Rate Blood Pressure 136/74 H O2 Saturation 99 Oxygen O2 Source [Without Activity] Room air O2 Source Room air - Rads (name of study) Head CT Radiology: Final report received, EMP read contemporaneously, See rad report (No acute abnormality) PD MEDICAL DECISION MAKING - ED course Complexity details: reviewed results, re-evaluated patient, considered different ial, d/w patient, d/w family ED course: 81-year-old male status post ground-level fall. No injuries. Head CT does not show any acute abnormalities. Ambulating without difficulty. At his baseline mental status. will monitor him at home. Patient and family counseled regarding signs and symptoms for which I believe and urgent re-evaluation would be necessary. Patient with good understanding of and agreement to plan and is comfortable going home at this time This document was made in part using voice recognition software. While efforts are made to proofread this document, sound alike and grammatical errors may occur. Departure - Departure Disposition: 01 Home, Self Care Clinical Impression: Fall Qualifiers: Encounter type: initial encounter Qualified Code(s): W19.XXXA - Unspecified fall, initial encounter Condition: Good Instructions: ED Mechanical Fall Follow-Up: Gian Neumann MD [Primary Care Provider] - As Needed Comments: Thankfully your head CT does not show any acute abnormalities. Please follow-up with your doctor as needed for further care. Return if you worsen. Discharge Date/Time: 02/04/22 19:51
--- NOTE | 2022-02-04 19:21 | CT Report ---
PROCEDURE: HEAD WO INDICATIONS: fall, pt on eliquis TECHNIQUE: Noncontrast 4.5 mm thick angled axial sections acquired from the foramen magnum to the vertex. For r adiation dose reduction, the following was used: automated exposure control, adjustment of mA and/or kV according to patient size. COMPARISON: 11/09/2017. FINDINGS: Image quality: Excellent. CSF spaces: Basal cisterns are patent. No extra-axial fluid collections. Ventricles are normal in size and shape. Brain: No midline shift. No intracranial masses or hemorrhage. No mass effect. Smart-white matter i nterface is normal. There cerebral volume loss for age with resultant ventricular and sulcal prominen ce. There are periventricular and deep white matter chronic small vessel ischemic changes. Atheroscle rotic calcifications are noted in the intracranial segments of the bilateral internal carotid arterie s. Redemonstration of senescent calcifications of the right basal ganglia. Skull and face: Calvarium and visualized facial bones are intact, without suspicious lesions. Sinuses: Visualized sinuses and mastoids are clear. IMPRESSION: CT head without acute intracranial abnormalities. No calvarial fractures. No acute hemor rhage. Redemonstration of age-related senescent changes and sequela of chronic small vessel ischemic disease . Reviewed by: Monster Birmingham MD on 02/04/2022 7:19 PM PST Approved by: Monster Birmingham MD on 02/04/2022 7:19 PM PST Station ID: [id number]
[2022-02-04 19:53] VITALS: BP 136/74
== END 2022-02-04 19:51 | disposition home or self-care (01) ==
LOC: ED 17:26
DX: S09.90XA Unspecified injury of head, initial encounter (principal); W18.30XA Fall on same level, unspecified, initial encounter; Z79.01 Long term (current) use of anticoagulants; I48.91 Unspecified atrial fibrillation; I10 Essential (primary) hypertension; Z87.891 Personal history of nicotine dependence
CPT/HCPCS: 99282; 99284

== ENCOUNTER 2022-08-20 11:51 | Outpatient (CLI) | payer MEDICARE, OTHER ==
[2022-08-20 12:16] LABS: BASOPHILS % (AUTO) 0.5 %; EOSINOPHILS # (AUTO) 0.1 10^3/uL (0.0-0.7); EOSINOPHILS % (AUTO) 1.1 %; HCT - HEMATOCRIT 38.3 % (42.0-52.0); HGB - HEMOGLOBIN 11.9 g/dL (14.0-18.0); LYMPHOCYTES % (AUTO) 17.2 %; MEAN CORPUSCULAR HEMOGLOBIN 31.2 pg (27.0-31.0); MEAN CORPUSCULAR HGB CONC 31.1 g/dL (32.0-36.0); MEAN CORPUSCULAR VOLUME 100.3 fL (80.0-94.0); MONOCYTES # (AUTO) 0.7 10^3/uL (0.0-1.0); MONOCYTES % (AUTO) 13.1 %; NEUTROPHILS # (AUTO) 3.8 10^3/uL (1.5-6.6); NEUTROPHILS % (AUTO) 67.9 %; PLT - PLATELET COUNT 255 10^3/uL (130-450); RED BLOOD COUNT 3.82 10^6/uL (4.70-6.10); RED CELL DISTRIBUTION WIDTH 13.5 % (12.0-15.0); WHITE BLOOD COUNT 5.6 x10^3/uL (4.8-10.8)
[2022-08-20 12:33] LABS: ALBUMIN 3.5 g/dL (3.2-5.5); ALKALINE PHOSPHATASE 50 IU/L (42-121); ALT ALANINE AMINOTRANSFERASE 16 IU/L (10-60); AST ASPARTATE AMINOTRANSFERASE 17 IU/L (10-42); BILIRUBIN,TOTAL 0.9 mg/dL (0.2-1.0); BUN - BLOOD UREA NITROGEN 39 mg/dL (6-20); CALCIUM 9.2 mg/dL (8.5-10.3); CARBON DIOXIDE - CO2 30 mmol/L (21-32); CHLORIDE 102 mmol/L (101-111); CHOL/HDL RATIO 3.1 (<5.0); CHOLESTEROL 120 mg/dL; CREATININE 1.6 mg/dL (0.6-1.2); GFR - MDRD 42 (>89); GLUCOSE 104 mg/dL (70-100); HDL CHOLESTEROL 39 mg/dL; LDL CHOLESTEROL,CALCULATED 62 mg/dL; LDL/HDL RATIO 1.6 (<3.6); POTASSIUM 4.7 mmol/L (3.5-5.0); SODIUM 140 mmol/L (135-145); TOTAL PROTEIN 6.9 g/dL (6.7-8.2); TRIGLYCERIDES 94 mg/dL; VLDL CHOLESTEROL 19 mg/dL
== END 2022-08-20 11:52 | disposition home or self-care (01) ==
LOC: LAB 11:51
PROVIDERS: ATTEND Nurse Practitioner
DX: I48.21 Permanent atrial fibrillation (principal); I25.10 Atherosclerotic heart disease of native coronary artery without angina pectoris; R06.09 Other forms of dyspnea
CPT/HCPCS: 36415; 80053; 80061; 83721; 83880; 84443; 85025

== ENCOUNTER 2023-01-05 18:44 | Outpatient (CLI) | payer MEDICARE, OTHER | END 2023-01-05 18:45 | disposition critical access hospital (66) | LOC: EMS 18:44 | DX: R53.1 Weakness (principal); R06.09 Other forms of dyspnea; R55 Syncope and collapse; R53.83 Other fatigue; I48.91 Unspecified atrial fibrillation; R41.0 Disorientation, unspecified | CPT/HCPCS: A0425; A0429 ==

== ENCOUNTER 2023-01-05 18:51 | Emergency (ER) | payer MEDICARE, OTHER ==
--- NOTE | 2023-01-05 19:08 | ED Physician Documentation ---
PD HPI DYSPNEA - Stated complaint Stated Complaint: SYNCOPE/SOA - History obtained from History obtained from: EMS - Additional information Additional information: 82-year-old gentleman who with apparent history of hypertension, atrial fibri llation, and cardiomyopathy noting review of echocardiogram dated September 2020 with EF of 25 to 30%, mild TR. He presents by ambulance. History is mostly from the paramedics initially as the patient seems confused, probably demented. The report is shortness of breath and weakness. The patient denies shortness of breath nor weakness. He has no specific complaints stating that he "feels pretty good." Review of Systems Unable to obtain: Dementia PD PAST MEDICAL HISTORY - Past Medical History Cardiovascular: Hypertension, High cholesterol, Atrial fibrillation Respiratory: None Neuro: None Endocrine/Autoimmune: None GI: Ulcerative colitis : Other HEENT: None Psych: None Musculoskeletal: None Derm: None - Past Surgical History Past Surgical History: Yes General: Other HEENT: Tonsil/Adenoidectomy - Present Medications Home Medications: Ambulatory Orders Medication Instructions Recorded Confirmed Metoprolol Succinate [Toprol Xl] 100 mg PO BID 03/29/14 02/04/22 Simvastatin [Zocor] 20 mg PO QPM 03/29/14 02/04/22 Apixaban [Eliquis] 5 mg ORAL DAILY 11/09/17 02/04/22 - Allergies Allergies/Adverse Reactions: Allergies Allergy/AdvReac Type Severity Reaction Status Date / Time Sulfa (Sulfonamide Allergy Mild Rash Verified 02/04/22 17:28 Antibiotics) - Social History Does the pt smoke?: Yes Smoking Status: Former smoker Does the pt drink ETOH?: Yes Does the pt have substance abuse?: No - Immunizations Immunizations are current?: Yes - POLST Patient has POLST: Yes PD ED PE NORMAL - Vitals Vital signs reviewed: Yes - General General: Other (He is alert and oriented to person and place but not time or events, He is mildly tachypneic.) - HEENT HEENT: PERRL, EOMI - Neck Neck: Supple, no meningeal sign, No bony TTP - Cardiac Cardiac: Other (Irregularly irregular without murmur) - Respiratory Respiratory: No respiratory distress, Clear bilaterally - Abdomen Abdomen: Normal bowel sounds, Soft, Non tender (With extensive surgical scars, that he does not know what they are from.) - Back Back: No CVA TTP, No spinal TTP - Derm Derm: Normal color, Warm and dry - Extremities Extremities: No edema, No calf tenderness / cord - Neuro Eye Opening: Spontaneous Motor: Obeys Commands Verbal: Confused GCS Score: 14 Results - Vitals Vitals: Vital Signs - 24 hr 01/05/23 01/05/23 01/05/23 19:03 19:19 20:34 Temperature 36.6 C Heart Rate 96 102 H 100 Respiratory 22 18 20 Rate Blood Pressure 86/61 L 102/65 93/57 L O2 Saturation 94 97 96 01/05/23 01/05/23 01/05/23 21:11 21:34 22:08 Temperature Heart Rate 103 H 95 110 H Respiratory 22 23 17 Rate Blood Pressure 73/55 L 107/61 76/64 L O2 Saturation 100 99 98 01/05/23 22:39 Temperature Heart Rate 108 H Respiratory 23 Rate Blood Pressure 99/63 O2 Saturation 97 Oxygen O2 Source [] Room air O2 Source Room air - EKG (time done) 1917 Rate: Rate (enter#) (92) Rhythm: Atrial fibrillation [place]: Normal Intervals: Other (LAFB) QRS: LVH Ischemia: T wave inversion. No: ST elevation c/w ischemia, ST depression - Labs Labs: Laboratory Tests 01/05/23 01/05/23 01/05/23 19:17 19:17 19:17 WBC 12.0 H RBC 3.61 L Hgb 10.9 L Hct 35.6 L MCV 98.6 H MCH 30.2 MCHC 30.6 L RDW 13.7 Plt Count 327 MPV 9.5 Neut # (Auto) 11.1 H Lymph # (Auto) 0.5 L [place] # (Auto) 0.4 Eos # (Auto) 0.0 Baso # (Auto) 0.0 Absolute Nucleated RBC 0.00 Nucleated RBC % 0.0 Sodium 138 Potassium 4.9 Chloride 98 L Carbon Dioxide 24 Anion Gap 16.0 H BUN 39 H Creatinine 1.7 H Estimated GFR (MDRD) 39 L Glucose 146 H Lactic Acid Calcium 9.2 Total Bilirubin 1.5 H AST 31 ALT 26 Alkaline Phosphatase 66 Troponin I High Sens 35.0 H* B-Natriuretic Peptide Total Protein 6.4 L Albumin 2.5 L Globulin 3.9 Albumin/Globulin Ratio 0.6 L Lipase 22 Nasal Adenovirus (PCR) Nasal B. parapertussis DNA (PCR) Nasal Coronavir 229E PCR Nasal Coronavir HKU1 PCR Nasal Coronavir NL63 PCR Nasal Coronavir OC43 PCR Nasal Enterovir/Rhinovir PCR Nasal Influenza B PCR Nasal Influenza A PCR Nasal Parainfluen 1 PCR Nasal Parainfluen 2 PCR Nasal Parainfluen 3 PCR Nasal Parainfluen 4 PCR Nasal RSV (PCR) Nasal B.pertussis DNA PCR Nasal C.pneumoniae (PCR) Jeanmarie Human Metapneumo PCR Nasal M.pneumoniae (PCR) Nasal SARS-CoV-2 (PCR) 01/05/23 01/05/23 01/05/23 19:17 19:17 20:28 WBC RBC Hgb Hct MCV MCH MCHC RDW Plt Count MPV Neut # (Auto) Lymph # (Auto) [place] # (Auto) Eos # (Auto) Baso # (Auto) Absolute Nucleated RBC Nucleated RBC % Sodium Potassium Chloride Carbon Dioxide Anion Gap BUN Creatinine Estimated GFR (MDRD) Glucose Lactic Acid 1.7 Calcium Total Bilirubin AST ALT Alkaline Phosphatase Troponin I High Sens B-Natriuretic Peptide 1191 H Total Protein Albumin Globulin Albumin/Globulin Ratio Lipase Nasal Adenovirus (PCR) NOT DETECTED Nasal B. parapertussis DNA (PCR) NOT DETECTED Nasal Coronavir 229E PCR NOT DETECTED Nasal Coronavir HKU1 PCR NOT DETECTED Nasal Coronavir NL63 PCR NOT DETECTED Nasal Coronavir OC43 PCR NOT DETECTED Nasal Enterovir/Rhinovir PCR NOT DETECTED Nasal Influenza B PCR NOT DETECTED Nasal Influenza A PCR NOT DETECTED Nasal Parainfluen 1 PCR NOT DETECTED Nasal Parainfluen 2 PCR NOT DETECTED Nasal Parainfluen 3 PCR NOT DETECTED Nasal Parainfluen 4 PCR NOT DETECTED Nasal RSV (PCR) NOT DETECTED Nasal B.pertussis DNA PCR NOT DETECTED Nasal C.pneumoniae (PCR) NOT DETECTED Jeanmarie Human Metapneumo PCR NOT DETECTED Nasal M.pneumoniae (PCR) NOT DETECTED Nasal SARS-CoV-2 (PCR) NOT DETECTED - Rads (name of study) Single view chest x-ray demonstrates bay by bibasilar and left perihilar op acities, small right pleural effusion, pulmonary vascular congestion and en Radiology: Final report received, EMP read indepedently PD Medical Decision Making - ED course Complexity details: d/w family (Spoke with by phone at 1911, SOA x 1 month. Not worsening. Does seem exertional. Does not seem weak to her. Tonight her son called from [place] and recommended calling 911. She does not know if he is demented. He does seem more confused lately. She was aware of the cardiomyopathy.) ED course: 82-year-old gentleman with history of cardiomyopathy with EF of 25% give or take presents with a worsening of his respiratory status and low blood pressures. He does not appear to be hypervolemic. But he is more confused than normal according to the . Chest x-ray showing small pleural effusion and likely pneumonia. I think this is more likely than a CHF exacerbation given that his BNP well elevated at 1191 has been much more elevated in the past (5492 on August 20 of last year. His troponin is modestly elevated but I do not feel this represents an active ischemic events given its low nature and his cardiomyopathy and A-fib. His BUN is elevated as is his creatinine, but his creatinine is only 0.1 higher than it was about 5 months ago. He was cultured up and given Rocephin and Zithromax. His PSI score is 162 points mandating admission. Unfortunately there are no current beds available in the hospital and region wide there is a bed shortage. He will be boarding in the emergency department pending admission. I am ordering his home meds, but holding his losartan given his low blood pressures. I do want to continue his Coreg given the A-fib as we do not want him to become out of control with regard to rate. I spoke with his , sure understanding is that he is full code. Update January 05 10:08 PM. His pressure has been trending down, currently 76/64. We will trial a small fluid bolus, obviously he is at risk for fluid overload. Care to overnight ED physician at shift change. Departure - Departure Disposition: 66 [facility] DC/Xfer Clinical Impression: Pneumonia Qualifiers: Pneumonia type: due to unspecified organism Laterality: left Lung location: lower lobe of lung Qualified Code(s): J18.9 - Pneumonia, unspecified organism Cardiomyopathy Qualifiers: Cardiomyopathy type: unspecified Qualified Code(s): I42.9 - Cardiomyopathy, unspecified Dementia Qualifiers: Dementia type: unspecified type Dementia severity: moderate Dementia behavioral or psychological symptom: without behavioral, psychotic, or mood disturbance or anxiety Qualified Code(s): F03.B0 - Unspecified dementia, moderate, without behavioral disturbance, psychotic disturbance, mood disturbance, and anxiety Condition: Serious
[2023-01-05 19:23] LABS: BASOPHILS % (AUTO) 0.1 %; HCT - HEMATOCRIT 35.6 % (42.0-52.0); HGB - HEMOGLOBIN 10.9 g/dL (14.0-18.0); LYMPHOCYTES # (AUTO) 0.5 10^3/uL (1.5-3.5); LYMPHOCYTES % (AUTO) 4.3 %; MEAN CORPUSCULAR HEMOGLOBIN 30.2 pg (27.0-31.0); MEAN CORPUSCULAR HGB CONC 30.6 g/dL (32.0-36.0); MEAN CORPUSCULAR VOLUME 98.6 fL (80.0-94.0); MEAN PLATELET VOLUME 9.5 fL (7.4-11.4); MONOCYTES # (AUTO) 0.4 10^3/uL (0.0-1.0); MONOCYTES % (AUTO) 2.9 %; NEUTROPHILS # (AUTO) 11.1 10^3/uL (1.5-6.6); NEUTROPHILS % (AUTO) 92.4 %; PLT - PLATELET COUNT 327 10^3/uL (130-450); RED BLOOD COUNT 3.61 10^6/uL (4.70-6.10); RED CELL DISTRIBUTION WIDTH 13.7 % (12.0-15.0)
--- NOTE | 2023-01-05 19:30 | XRAY Report ---
PROCEDURE: Chest 1 View X-Ray INDICATIONS: dyspnea TECHNIQUE: One view of the chest was acquired. COMPARISON: Chest radiograph 02/22/2018 FINDINGS: Surgical changes and devices: None. Lungs and pleura: Small right pleural effusion. Patchy bibasilar opacities, left lung worse than rig ht. Patchy left perihilar opacities also demonstrated. No pneumothorax. Mediastinum: Cardiac silhouette is mildly enlarged. Bones and chest wall: No suspicious bony lesions. Overlying soft tissues appear unremarkable. IMPRESSION: 1. Bibasilar and left perihilar opacities, nonspecific, could represent multifocal pneumonia or edema . 2. Small right pleural effusion. 3. Cardiac silhouette is enlarged, pulmonary vasculature appears congested. Reviewed by: Beto Pérez MD on 01/05/2023 7:28 PM PST Approved by: Beto Pérez MD on 01/05/2023 7:28 PM PST Station ID: [id number]
[2023-01-05 19:35] LABS: ALBUMIN 2.5 g/dL (3.2-5.5); ALBUMIN/GLOBULIN RATIO 0.6 (1.0-2.2); BILIRUBIN,TOTAL 1.5 mg/dL (0.2-1.0); CALCIUM 9.2 mg/dL (8.5-10.3); CREATININE 1.7 mg/dL (0.6-1.2); POTASSIUM 4.9 mmol/L (3.5-5.0); TOTAL PROTEIN 6.4 g/dL (6.7-8.2)
[2023-01-05] MEDS ORDERED: cefTRIAXone 1 GM VIAL IVP STA (19:57)
[2023-01-05] MEDS ORDERED: AZITHROMYCIN INJ 500 MG in SODIUM CHLORIDE 0.9% 250 ML IV STA (19:57)
[2023-01-05] MEDS ORDERED: ONDANSETRON 4 MG/2 ML VIAL IVP PRN (20:26)
[2023-01-05] MEDS ORDERED: ACETAMINOPHEN 500 MG TABLET PO PRN (20:26)
[2023-01-05] MEDS ORDERED: traZODone 50 MG TABLET PO SCH (21:00)
[2023-01-05] MEDS ORDERED: carvediloL 12.5 MG TABLET PO SCH (21:00)
[2023-01-05] MEDS ORDERED: METOPROLOL SUCCINATE 50 MG TABLET PO SCH (21:00)
[2023-01-05 21:41] LABS: B. PARAPERTUSSIS- RESP PCR PAN NOT DETECTED; B. PERTUSSIS- RESP PCR PANEL NOT DETECTED; C. PNEUMONIAE- RESP PCR PANEL NOT DETECTED; CORONAVIRUS 229E-RESP PCR NOT DETECTED; CORONAVIRUS HKU1-RESP PCR NOT DETECTED; CORONAVIRUS NL63-RESP PCR NOT DETECTED; CORONAVIRUS OC43-RESP PCR NOT DETECTED; HUMAN METAPNEUMOVIRUS NOT DETECTED; INFLUENZA A- RESP PCR PANEL NOT DETECTED; INFLUENZA B - RESP PCR PANEL NOT DETECTED; M. PNEUMONIAE- RESP PCR PANEL NOT DETECTED; PARAINFLUENZA VIRUS 1 NOT DETECTED; PARAINFLUENZA VIRUS 2 NOT DETECTED; PARAINFLUENZA VIRUS 3 NOT DETECTED; PARAINFLUENZA VIRUS 4 NOT DETECTED; RHINOVIRUS/ENTEROVIRUS NOT DETECTED; RSV- RESP PCR PANEL NOT DETECTED; SARS-CoV-2 -RESP PCR PANEL NOT DETECTED
[2023-01-05] MEDS ORDERED: SODIUM CHLORIDE 0.9% 500 ML IV ONE (22:08)
[2023-01-06 05:50] LABS: BASOPHILS % (AUTO) 0.1 %; HCT - HEMATOCRIT 36.2 % (42.0-52.0); HGB - HEMOGLOBIN 11.4 g/dL (14.0-18.0); LYMPHOCYTES # (AUTO) 0.8 10^3/uL (1.5-3.5); LYMPHOCYTES % (AUTO) 6.1 %; MEAN CORPUSCULAR HGB CONC 31.5 g/dL (32.0-36.0); MEAN CORPUSCULAR VOLUME 98.4 fL (80.0-94.0); MEAN PLATELET VOLUME 9.7 fL (7.4-11.4); MONOCYTES # (AUTO) 0.9 10^3/uL (0.0-1.0); MONOCYTES % (AUTO) 6.5 %; NEUTROPHILS # (AUTO) 11.7 10^3/uL (1.5-6.6); NEUTROPHILS % (AUTO) 86.9 %; PLT - PLATELET COUNT 327 10^3/uL (130-450); RED BLOOD COUNT 3.68 10^6/uL (4.70-6.10); RED CELL DISTRIBUTION WIDTH 13.8 % (12.0-15.0); WHITE BLOOD COUNT 13.4 x10^3/uL (4.8-10.8)
[2023-01-06 05:59] LABS: CALCIUM 8.9 mg/dL (8.5-10.3); CREATININE 1.6 mg/dL (0.6-1.2); POTASSIUM 4.4 mmol/L (3.5-5.0)
--- NOTE | 2023-01-06 06:34 | ED Physician Documentation ---
ED Addendum - Addendum Addendum: 01/06/23 06:33 Patient endorsed to me by Dr. Cheng at 7pm shift change pending admission for pneumonia. He was responsive to bolus of fluids and asymptomatic overnight despite some borderline low blood pressure. Currently 106/74. Plan to endorse to Dr. Fischer at 7am shift change awaiting med/surg admission pending bed availability.
[2023-01-06] MEDS ORDERED: PANTOPRAZOLE 40 MG TABLET PO SCH (07:00)
[2023-01-06] MEDS ORDERED: MULTIVITAMIN TABLET PO SCH (08:00)
[2023-01-06] MEDS ORDERED: ATORVASTATIN 10 MG TABLET PO SCH (09:00)
[2023-01-06] MEDS ORDERED: cefTRIAXone 1 GM in SODIUM CHLORIDE 0.9% MINIBAG 100 ML IV SCH (09:00)
[2023-01-06] MEDS ORDERED: FUROSEMIDE 20 MG TABLET PO SCH (09:00)
[2023-01-06] MEDS ORDERED: SPIRONOLACTONE 25 MG TABLET PO SCH (09:00)
[2023-01-06] MEDS ORDERED: AZITHROMYCIN INJ 500 MG in SODIUM CHLORIDE 0.9% 250 ML IV SCH (09:00)
[2023-01-06] MEDS ORDERED: APIXABAN 5 MG TABLET PO SCH (09:00)
[2023-01-06 09:05] VITALS: BP 101/73
[2023-01-06] MEDS ORDERED: SODIUM CHLORIDE 0.9% 500 ML IV STA (10:44)
--- NOTE | 2023-01-06 13:18 | ED Physician Documentation ---
ED Addendum - Addendum Addendum: Pt boarding overnight Awaiting hospitalization for pneumonia. He has known cardiomyopathy with a EF of 25 to 30%.His blood pressure has been soft throughout the night but he did respond to a small fluid bolus yesterday and appears slightly improved this morning. He was up eating his breakfast And then had a bloody bowel movement. Shortly after this he went unresponsive. He did have a pulse and was breathing on his own. He was hypotensive. A repeat EKG Shows that he is in A-fib with a rate of 49. There are inverted T waves in anterior lateral leads which were seen on the previous. Patient was getting a small fluid bolus when he coded. I had just spoken to the who was very distraught and did want all measures taken. He did not have a POLST form on file but previous conversation was that he is currently a full code. Patient was intubated and given several rounds of epinephrine with chest compressions. He remained in PEA. There is no cardiac activity seen on the bedside ultrasound. Time of 1114. and [id number] had come to the emergency departm ent. I did meet with them in the quiet room and updated them regarding patient's status. Another son from [place] is also on the way here. Critical care - Critical Care Note Time(min): 32 Time Includes: Direct patient care, Review records, Reassess patient Procedures - Intubation - Major Provider: Emergency physician Blade: Raúl Tube: Size-enter number (7.5), Cuffed Route: Oral Confirmation: Direct visualization, Bilateral breath sounds, No abdominal breath sound, End tidal CO2 Complications: No compications Departure - Departure Disposition: 20 Clinical Impression: Cardiac arrest Pneumonia Qualifiers: Pneumonia type: due to unspecified organism Laterality: left Lung location: lower lobe of lung Qualified Code(s): J18.9 - Pneumonia, unspecified organism Cardiomyopathy Qualifiers: Cardiomyopathy type: unspecified Qualified Code(s): I42.9 - Cardiomyopathy, unspecified Dementia Qualifiers: Dementia type: unspecified type Dementia severity: moderate Dementia behavioral or psychological symptom: without behavioral, psychotic, or mood disturbance or anxiety Qualified Code(s): F03.B0 - Unspecified dementia, moderate, without behavioral disturbance, psychotic disturbance, mood disturbance, and anxiety Condition: Serious Results - Vitals Vitals: Vital Signs - 24 hr 01/05/23 01/05/23 01/05/23 19:03 19:19 20:34 Temperature 36.6 C Heart Rate 96 102 H 100 Respiratory 22 18 20 Rate Blood Pressure 86/61 L 102/65 93/57 L O2 Saturation 94 97 96 If not protocol : Oxygen Flow, liters/minute 01/05/23 01/05/23 01/05/23 21:11 21:34 22:08 Temperature Heart Rate 103 H 95 110 H Respiratory 22 23 17 Rate Blood Pressure 73/55 L 107/61 76/64 L O2 Saturation 100 99 98 If not protocol : Oxygen Flow, liters/minute 01/05/23 01/06/23 01/06/23 22:39 00:52 01:30 Temperature Heart Rate 108 H 99 101 H Respiratory 23 25 H 22 Rate Blood Pressure 99/63 102/74 99/65 O2 Saturation 97 97 95 If not protocol : Oxygen Flow, liters/minute 01/06/23 01/06/23 01/06/23 02:00 02:40 03:41 Temperature Heart Rate 99 104 H 107 H Respiratory 21 24 26 H Rate Blood Pressure 104/80 104/80 114/89 H O2 Saturation 96 96 If not protocol : Oxygen Flow, liters/minute 01/06/23 01/06/23 01/06/23 04:00 04:30 06:43 Temperature Heart Rate 100 101 H 105 H Respiratory 20 18 25 H Rate Blood Pressure 95/69 106/74 88/65 L O2 Saturation 100 97 94 If not protocol : Oxygen Flow, liters/minute 01/06/23 01/06/23 01/06/23 07:46 08:12 09:04 Temperature 36.4 C L Heart Rate 97 98 101 H Respiratory 18 20 23 Rate Blood Pressure 91/60 95/78 101/73 O2 Saturation 99 99 98 If not protocol 2 2 2 : Oxygen Flow, liters/minute Oxygen O2 Source [] Room air O2 Source Nasal cannula - EKG (time done) 1039 Rate: Rate (enter#) (49) Rhythm: Atrial fibrillation Ischemia: T wave inversion (Anterior lateral leads) - Labs Labs: Laboratory Tests 01/05/23 01/05/23 01/05/23 19:17 19:17 19:17 WBC 12.0 H RBC 3.61 L Hgb 10.9 L Hct 35.6 L MCV 98.6 H MCH 30.2 MCHC 30.6 L RDW 13.7 Plt Count 327 MPV 9.5 Neut # (Auto) 11.1 H Lymph # (Auto) 0.5 L [place] # (Auto) 0.4 Eos # (Auto) 0.0 Baso # (Auto) 0.0 Absolute Nucleated RBC 0.00 Nucleated RBC % 0.0 Sodium 138 Potassium 4.9 Chloride 98 L Carbon Dioxide 24 Anion Gap 16.0 H BUN 39 H Creatinine 1.7 H Estimated GFR (MDRD) 39 L Glucose 146 H Lactic Acid Calcium 9.2 Total Bilirubin 1.5 H AST 31 ALT 26 Alkaline Phosphatase 66 Troponin I High Sens 35.0 H* B-Natriuretic Peptide Total Protein 6.4 L Albumin 2.5 L Globulin 3.9 Albumin/Globulin Ratio 0.6 L Lipase 22 Nasal Adenovirus (PCR) Nasal B. parapertussis DNA (PCR) Nasal Coronavir 229E PCR Nasal Coronavir HKU1 PCR Nasal Coronavir NL63 PCR Nasal Coronavir OC43 PCR Nasal Enterovir/Rhinovir PCR Nasal Influenza B PCR Nasal Influenza A PCR Nasal Parainfluen 1 PCR Nasal Parainfluen 2 PCR Nasal Parainfluen 3 PCR Nasal Parainfluen 4 PCR Nasal RSV (PCR) Nasal B.pertussis DNA PCR Nasal C.pneumoniae (PCR) Jeanmarie Human Metapneumo PCR Nasal M.pneumoniae (PCR) Nasal SARS-CoV-2 (PCR) 01/05/23 01/05/23 01/05/23 19:17 19:17 20:28 WBC RBC Hgb Hct MCV MCH MCHC RDW Plt Count MPV Neut # (Auto) Lymph # (Auto) [place] # (Auto) Eos # (Auto) Baso # (Auto) Absolute Nucleated RBC Nucleated RBC % Sodium Potassium Chloride Carbon Dioxide Anion Gap BUN Creatinine Estimated GFR (MDRD) Glucose Lactic Acid 1.7 Calcium Total Bilirubin AST ALT Alkaline Phosphatase Troponin I High Sens B-Natriuretic Peptide 1191 H Total Protein Albumin Globulin Albumin/Globulin Ratio Lipase Nasal Adenovirus (PCR) NOT DETECTED Nasal B. parapertussis DNA (PCR) NOT DETECTED Nasal Coronavir 229E PCR NOT DETECTED Nasal Coronavir HKU1 PCR NOT DETECTED Nasal Coronavir NL63 PCR NOT DETECTED Nasal Coronavir OC43 PCR NOT DETECTED Nasal Enterovir/Rhinovir PCR NOT DETECTED Nasal Influenza B PCR NOT DETECTED Nasal Influenza A PCR NOT DETECTED Nasal Parainfluen 1 PCR NOT DETECTED Nasal Parainfluen 2 PCR NOT DETECTED Nasal Parainfluen 3 PCR NOT DETECTED Nasal Parainfluen 4 PCR NOT DETECTED Nasal RSV (PCR) NOT DETECTED Nasal B.pertussis DNA PCR NOT DETECTED Nasal C.pneumoniae (PCR) NOT DETECTED Jeanmarie Human Metapneumo PCR NOT DETECTED Nasal M.pneumoniae (PCR) NOT DETECTED Nasal SARS-CoV-2 (PCR) NOT DETECTED 01/06/23 01/06/23 01/06/23 05:31 05:31 05:31 WBC 13.4 H RBC 3.68 L Hgb 11.4 L Hct 36.2 L MCV 98.4 H MCH 31.0 MCHC 31.5 L RDW 13.8 Plt Count 327 MPV 9.7 Neut # (Auto) 11.7 H Lymph # (Auto) 0.8 L [place] # (Auto) 0.9 Eos # (Auto) 0.0 Baso # (Auto) 0.0 Absolute Nucleated RBC 0.00 Nucleated RBC % 0.0 Sodium 140 Potassium 4.4 Chloride 102 Carbon Dioxide 24 Anion Gap 14.0 H BUN 43 H Creatinine 1.6 H Estimated GFR (MDRD) 42 L Glucose 120 H Lactic Acid Calcium 8.9 Total Bilirubin AST ALT Alkaline Phosphatase Troponin I High Sens 31.2 H* B-Natriuretic Peptide Total Protein Albumin Globulin Albumin/Globulin Ratio Lipase Nasal Adenovirus (PCR) Nasal B. parapertussis DNA (PCR) Nasal Coronavir 229E PCR Nasal Coronavir HKU1 PCR Nasal Coronavir NL63 PCR Nasal Coronavir OC43 PCR Nasal Enterovir/Rhinovir PCR Nasal Influenza B PCR Nasal Influenza A PCR Nasal Parainfluen 1 PCR Nasal Parainfluen 2 PCR Nasal Parainfluen 3 PCR Nasal Parainfluen 4 PCR Nasal RSV (PCR) Nasal B.pertussis DNA PCR Nasal C.pneumoniae (PCR) Jeanmarie Human Metapneumo PCR Nasal M.pneumoniae (PCR) Nasal SARS-CoV-2 (PCR)
== END 2023-01-06 15:31 | disposition expired ==
LOC: EDUNIT# → ED 18:51
DX: I46.9 Cardiac arrest, cause unspecified (principal); J18.9 Pneumonia, unspecified organism; I42.9 Cardiomyopathy, unspecified; F03.B0 Unspecified dementia, moderate, without behavioral disturbance, psychotic disturbance, mood disturbance, and anxiety; I10 Essential (primary) hypertension; Z87.891 Personal history of nicotine dependence
CPT/HCPCS: 36415; 71045; 80048; 80053; 83605; 83690; 83880; 84484; 85025; 87040; 87633; 92950; 93005; 96361; 96365; 96366; 96367; 96368; 99291; A9270